=== PATIENT | female | born 1965 | race Caucasian/White ===

== ENCOUNTER → 2016-05-15 | Outpatient (CLI) | payer OTHER ==
--- NOTE | 2016-05-15 11:35 | DX ---
1. Chest, PA and Lateral History: Right lower lobe pneumonia, chest pain Findings: There is right lower lobe lateral basilar segmental infiltrate and medial basilar segment c onsolidation consistent with pneumonia/ atelectasis. At the superior medial margin of the infiltrate is in a regular nodular density. Bronchial wall thickening is consistent with underlying bronchitis. The it is difficult to exclude a posterior right pleural effusion. Lung volumes are prominent consist ent with an element of air trapping. Impression: 1. Right lower lobe pneumonia and atelectasis. 2. Difficult to exclude an underlying right lower lobe nodule. Recommend follow-up chest radiography after appropriate antibiotic therapy versus noncontrast CT. If there is clinical concern for pulmonar y embolism, then CT angiography could address both issues. 2. Right ribs, 3 views History: Chest pain, pneumonia, cough Findings: No right rib fracture identified. A metal BB is placed over the lower sherif-lateral right chest wall. An irregular right lower lobe nodule is again identified. Impression: No rib abnormality identified. Results called to Dr. Boogie Ferro at 11:27 AM.
== END ==
LOC: BRMIMAGING 10:04
PROVIDERS: ATTEND Internal Medicine
DX: J18.9 Pneumonia, unspecified organism (principal); J98.11 Atelectasis; R91.1 Solitary pulmonary nodule
CPT/HCPCS: 71020-PO; 71100-PO